=== PATIENT | male | born 1980 | race Caucasian/White ===

== ENCOUNTER 2019-05-19 22:54 | Observation (INO) ==
[2019-05-19] MEDS ORDERED: *HR* EPINEPHrine 1 MG/10 ML SYRINGE ONE (23:11)
[2019-05-19] MEDS ORDERED: methylPREDNISolone 125 MG/2 ML VIAL IVP ONE (23:12)
[2019-05-19] MEDS ORDERED: Famotidine 20 MG/2 ML VIAL IVP ONE (23:12)
[2019-05-19] MEDS ORDERED: EPINEPHrine 1 MG/ML VIAL ONE (23:13)
[2019-05-19] MEDS ORDERED: EPINEPHrine 1 MG/ML VIAL IM ONE (23:13)
[2019-05-19] MEDS ORDERED: 0.9 % Sodium Chloride 1,000 ML IVC ONE (23:52)
[2019-05-20] MEDS ORDERED: EPINEPHrine 1 MG/ML VIAL IM ONE (00:15)
[2019-05-20 00:42] LABS: Basophils % 0.3 %; Eosinophils # 0.3 K/mcL (0.0-0.6); Eosinophils % 2.6 %; Hemoglobin 12.9 g/dL (12.9-16.9); Lymphocytes # 3.7 K/mcL (0.6-4.6); Lymphocytes % 31.7 %; Mean Corpuscular HGB Conc 31.5 g/dL (31.6-35.5); Mean Corpuscular Hemoglobin 28.3 pg (28.0-33.3); Mean Corpuscular Volume 89.9 fL (83.0-100.0); Mean Platelet Volume 9.6 fL (9.4-12.4); Monocytes # 0.7 K/mcL (0.0-1.3); Monocytes % 5.9 %; Neutrophils # 6.8 K/mcL (1.6-8.9); Platelet Count 341 K/mcL (140-400); Red Blood Count 4.56 M/mcL (4.19-5.50); Red Cell Distribution Width 14.1 % (11.5-14.5); Segmented Neutrophils % 58.5 %; White Blood Count 11.6 K/mcL (4.3-11.1)
[2019-05-20 00:53] LABS: BUN/Creatinine Ratio 16 (6-26); Blood Urea Nitrogen 12 mg/dL (6-20); Calcium 8.8 mg/dL (8.6-10.3); Carbon Dioxide 23 mEq/L (23-29); Chloride 107 mEq/L (98-107); Glucose 128 mg/dL (70-105); Osmolality,Calculated 289 (280-300); Potassium 4.1 mEq/L (3.5-5.1); Sodium 139 mEq/L (136-145); eGFR For African Americans > 60 (> 60); eGFR For Non-African Americans > 60 (> 60)
[2019-05-20] MEDS ORDERED: Ondansetron 4 MG/2 ML VIAL IVP PRN (02:14)
[2019-05-20] MEDS ORDERED: Naloxone 0.4 MG/ML INJ IVP PRN (02:14)
[2019-05-20] MEDS ORDERED: Acetaminophen 325 MG TABLET PO PRN (02:14)
[2019-05-20] MEDS ORDERED: 0.9 % Sodium Chloride 1,000 ML IVC SCH (02:15)
[2019-05-20] MEDS ORDERED: EPINEPHrine 1 MG/ML VIAL IM PRN (02:16)
[2019-05-20 05:07] LABS: Basophils % 0.3 %; Eosinophils % 0.1 %; Hematocrit 41.6 % (37.5-50.1); Hemoglobin 13.1 g/dL (12.9-16.9); Immature Granulocytes % 0.7 % (0-4); Lymphocytes % 6.9 %; Mean Corpuscular HGB Conc 31.5 g/dL (31.6-35.5); Mean Corpuscular Hemoglobin 28.9 pg (28.0-33.3); Mean Corpuscular Volume 91.6 fL (83.0-100.0); Mean Platelet Volume 10.2 fL (9.4-12.4); Monocytes # 0.1 K/mcL (0.0-1.3); Monocytes % 0.9 %; Neutrophils # 12.6 K/mcL (1.6-8.9); Platelet Count 330 K/mcL (140-400); Red Blood Count 4.54 M/mcL (4.19-5.50); Segmented Neutrophils % 91.1 %; White Blood Count 13.8 K/mcL (4.3-11.1)
[2019-05-20] MEDS ORDERED: *HR* Heparin 5,000 UNIT/ML VIAL SQ SCH (06:00)
[2019-05-20 06:51] LABS: BUN/Creatinine Ratio 14 (6-26); Blood Urea Nitrogen 10 mg/dL (6-20); Calcium 8.9 mg/dL (8.6-10.3); Carbon Dioxide 20 mEq/L (23-29); Chloride 109 mEq/L (98-107); Glucose 227 mg/dL (70-105); Magnesium 1.8 mg/dL (1.6-2.6); Osmolality,Calculated 294 (280-300); Potassium 4.3 mEq/L (3.5-5.1); Sodium 139 mEq/L (136-145); eGFR For African Americans > 60 (> 60); eGFR For Non-African Americans > 60 (> 60)
[2019-05-20] MEDS ORDERED: methylPREDNISolone 125 MG/2 ML VIAL IVP SCH (08:00)
[2019-05-20 10:57] VITALS: BP 126/91
== END 2019-05-20 11:40 | disposition home or self-care (01) ==
LOC: EMEROOARM 22:54 → 3NENU 22:54 → ICNU 05-20 01:43
PROVIDERS: ADMIT Internal Medicine; ATTEND Internal Medicine